=== PATIENT | male | born 1985 | race Caucasian/White ===

== ENCOUNTER → 2021-04-17 | Outpatient (CLI) | payer SELFPAY ==
[~2021-04-17] VITALS: Ht 177.8 cm; Wt 127.1 kg
[~2021-04-17] MED LIST: ACETAMINOPHEN 500 MG TAB (TYLENOL) PO PRN; ALBU2.5V4 IH; CASIRIVIMAB/IMDEVIMAB 1,200 MG in NS (IVPB) 250 ML IV ONE; CIPR500S2 PO; EPINEPHrine INJECTION 1 MG/ML AMP IM PRN; ESOM20SU PO; METR500T PO; ONDANSETRON 4 MG/2 ML (SDV) Z0FRAN IV PRN; diphenhydrAMINE 50 MG/ML INJ (BENADRYL) IV PRN
[2021-04-17 08:59] VITALS: BP 136/86
[2021-04-17 10:43] VITALS: BP 114/66
== END ==
LOC: INFUSION 09:03
PROVIDERS: ATTEND Nurse Practitioner Family
DX: Z23 Encounter for immunization (principal); U07.1 COVID-19